=== PATIENT | female | born 1965 | race Caucasian/White ===

== ENCOUNTER 2016-10-22 19:17 | Emergency (ER) | payer SELFPAY ==
[~2016-10-22] VITALS: Ht 180.3 cm; Wt 80.0 kg
[2016-10-22 19:23] VITALS: BP 128/87; PULSE 101; RESP 20; TEMP 98.1; O2SAT 92
[2016-10-22] MEDS ORDERED: SODIUM CHLOR 0.9% 1000 ML INJ 1,000 ML IV ONE (19:45)
[2016-10-22] MEDS ORDERED: TETANUS/DIPHTHERIA TOXOID ADULT 0.5 ML VIAL IM ONE (19:45)
[2016-10-22] MEDS ORDERED: LIDOCAINE HCL 1% PF 30 ML VIAL INFIL ONE (19:45)
--- NOTE | 2016-10-22 19:45 | PD ---
HPI Chief Complaint: Head Injury Time Seen by Provider: 19:35 Travel History International Travel<30 days: No Contact w/Intl Traveler<30days: No Traveled to known affect area: No History of Present Illness HPI 51-year-old female presents to the emergency department by private transportation the care of her friend for evaluation of head injury. Reportedly around 4:30 this afternoon patient had a non-syncopal slip and fall at the pool slide sustaining a head injury with a laceration to the right frontal scalp. Event was witnessed and there was no loss of consciousness and no reported seizure activity. Patient here denies any pain. Patient has been ambulatory since. Patient has had no altered mentation vomiting or loss of consciousness. Patient admits to drinking heavily and she broke up with her boyfriend. Patient intermittently tearful and upset because of her relationship situation. Patient denies any upper extremity or lower extremity numbness tingling or weakness. Patient's had no chest pain rib pain shortness of breath abdominal pain back pain or upper or lower extremity numbness tingling or weakness. There is been no ataxia of gait. Patient does not know her tetanus status. 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 Patient rates pain as 0/10 in intensity. Friend who witnessed event is at the bedside. [facility] Past Medical History Narrative Medical Right ear deafness; no surgery; alcohol use: Nursing notes reviewed Social History Tobacco Use: No Allergies-Medications (Allergen,Severity, Reaction): Coded Allergies: No Known Allergies (Unverified , 10/22/16) Reported Meds & Prescriptions Reported Meds & Active Scripts Active Zofran Odt (Ondansetron Odt) 4 Mg Tab 4 Mg SL Q6HR PRN Narrative Medication none per patient Review of Systems Except as stated in HPI: all other systems reviewed are Neg General / Constitutional: No: Fever Eyes: No: Visual changes HENT: No: Headaches, Neck Pain Cardiovascular: No: Chest Pain or Discomfort Respiratory: No: Shortness of Breath Gastrointestinal: No: Vomiting, Abdominal Pain Genitourinary: No: Flank Pain Musculoskeletal: No: Pain Skin: Positive Other (laceration right frontal scalp) Neurologic: No: Weakness, Dizziness, Syncope, Focal Abnormalities, Coordination Problem Psychiatric: Positive: Other (alcohol use), No: Anxiety Hematologic/Lymphatic: No: Lymph Node Enlargement Physical Exam Narrative GENERAL: Well-developed well-nourished female in no acute distress no respiratory distress with bandage to the head; GCS 15; intermittently tearful SKIN: Warm and dry. HEAD: Atraumatic. Normocephalic. Right frontal scalp and hairline 3.5 cm laceration without bony step off. No soft tissue swelling. EYES: Pupils equal and round. No scleral icterus. No injection or drainage. No periorbital rim tenderness or bony abnormality. ENT: No nasal bleeding or discharge. Mucous membranes pink and moist. Airway is patent. Bilateral tympanic membranes no redness no dullness no hemotympanum. NECK: Trachea midline. No JVD. No midline tenderness or bony step-off to direct palpation. CARDIOVASCULAR: Regular rate and rhythm. RESPIRATORY: No accessory muscle use. Clear to auscultation. Breath sounds equal bilaterally. GASTROINTESTINAL: Abdomen soft, non-tender, nondistended. Hepatic and splenic margins not palpable. MUSCULOSKELETAL: Extremities without clubbing, cyanosis, or edema. No obvious deformities. NEUROLOGICAL: Awake and alert. GCS 15. No obvious cranial nerve deficits. Motor grossly within normal limits. Five out of 5 muscle strength in the arms and legs. Normal speech. PSYCHIATRIC: Intermittently mood and affect. Data Data Last Documented VS Vital Signs Date Time Temp Pulse Resp B/P Pulse Ox O2 Delivery O2 Flow Rate FiO2 10/22/16 21:14 76 20 128/72 98 10/22/16 19:[address] Brain W/O Iv Contrast(Rout) (10/22/16 ) Ct Cerv Spine W/O Contrast (10/22/16 ) ^ Saline Lock (10/22/16 19:36) Alcohol (Ethanol) (10/22/16 19:36) Lidocaine Pf 1% Inj (Xylocaine-Mpf 1% In (10/22/16 19:45) Tetanus/Diphtheria Tox Adult (Tetanus/Di (10/22/16 19:45) Sodium Chlor 0.9% 1000 Ml Inj (Ns 1000 M (10/22/16 19:45) Ice/Cold Pack (10/22/16 19:36) Labs Laboratory Tests Test 10/22/16 20:05 Ethyl Alcohol Level 261 MG/DL [facility] Medical Decision Making Medical Screen Exam Complete: Yes Emergency Medical Condition: Yes Medical Record Reviewed: Yes Interpretation(s) alcohol: 261, elevated Last Impressions Head CT 10/22/16 0000 Signed Impressions: Service Date/Time: Saturday, October 22, 2016 19:44 - CONCLUSION: Right frontal scalp laceration. No fracture or acute intracranial abnormality is identified. Jose Malik MD Cervical Spine CT 10/22/16 0000 Signed Impressions: Service Date/Time: Saturday, October 22, 2016 19:44 - CONCLUSION: No acute cervical spine abnormality is identified. Jose Malik MD Vital Signs Date Time Temp Pulse Resp B/P Pulse Ox O2 Delivery O2 Flow Rate FiO2 10/22/16 20:06 102 20 144/82 100 10/22/16 19:57 20 10/22/16 19:23 98.1 101 20 128/87 92 Differential Diagnosis Closed head injury, ICH, contusion, skull fracture, scalp laceration, alcohol intoxication, cervical spine sprain strain fracture Narrative Course Patient presents one hour to 3 hours after event as patient and friend cannot agree on time of the injury: No loss of consciousness; dressing applied to laceration imaging studies ordered IV access obtained tetanus status updated. Imaging study consistent with no acute trauma related injury except identified to have scalp laceration. Serum alcohol of elevated at 261, patient has received IV fluid hydration and monitored in the emergency department; adult can operator at bedside willing to accept responsibility for patient in transport patient to home safely. Patient and can operator aware patient will require close head injury monitoring 24 hours and will be provided with closed head injury instructions. Laceration repaired by physician rn renal. Diagnosis Primary Impression: Closed head injury Qualified Code: S09.90XA - Closed head injury, initial encounter Additional Impressions: Scalp laceration Qualified Code: S01.01XA - Scalp laceration, initial encounter Alcohol ingestion Referrals: Primary Care Physician 2 days Patient Instructions: General Instructions Additional Instructions: Follow head injury precautions 24 hours Increase fluid hydration Do not drink alcoholic beverages Takes Zofran as prescribed as needed for nausea and/or vomiting Monitor temperature for fever take acetaminophen/Tylenol as needed for minor pain or for fever 100.4F or greater Avoid ibuprofen 24 hours and may use as needed per package instructions for pain associated with inflammation or for fever 100.4 days Fahrenheit or greater Wound check is performed at 2 days and suture removal at 5-7 days; keep one site clean and dry May apply ice pack intermittently to areas of soft tissue swelling. Med/Other Pt SpecificInfo: Prescription(s) given Scripts Ondansetron Odt (Zofran Odt)4 Mg Tab4 Mg SL Q6HR PRN (Nausea/Vomiting) #10 TAB Ref 0 Prov:Gale Gao MD 10/22/16 Disposition: 01 DISCHARGE HOME Condition: Stable Gale Gao MD Oct 22, 2016 19:45 Gale Gao MD Oct 22, 2016 19:45
[2016-10-22 20:06] VITALS: BP 144/82; PULSE 102; RESP 20; O2SAT 100
--- NOTE | 2016-10-22 20:27 | RADHPO ---
EXAM DATE/TIME: 10/22/2016 19:44 [facility] COMPARISON: No previous studies available for comparison. INDICATIONS : Trauma. Fall. Right temporal laceration. RADIATION DOSE: 66.33 CTDIvol (mGy) MEDICAL HISTORY : None SURGICAL HISTORY : None. ENCOUNTER: Initial ACUITY: 1 day PAIN SCALE: 2/10 LOCATION: Right temporal TECHNIQUE: Multiple contiguous axial images were obtained of the head. Using automated exposure control and adj ustment of the mA and/or kV according to patient size, radiation dose was kept as low as reasonably a chievable to obtain optimal diagnostic quality images. FINDINGS: CEREBRUM: The ventricles are normal. No evidence of midline shift, mass lesion, hemorrhage or acute infarction . No extra-axial fluid collections are seen. POSTERIOR FOSSA: The cerebellum and brainstem are intact. The 4th ventricle is midline. The cerebellopontine angle i s unremarkable. EXTRACRANIAL: There is a right frontal scalp laceration. SKULL: The calvaria is intact. No evidence of skull fracture. CONCLUSION: Right frontal scalp laceration. No fracture or acute intracranial abnormality is identified. Jose Malik MD on October 22, 2016 at 20:23 Board Certified Radiologist. This report was verified electronically.
--- NOTE | 2016-10-22 20:29 | RADHPO ---
EXAM DATE/TIME: 10/22/2016 19:44 [facility] COMPARISON: No previous studies available for comparison. INDICATIONS : Trauma. Fall. Neck pain. RADIATION DOSE: 26.70 CTDIvol (mGy) MEDICAL HISTORY : None SURGICAL HISTORY : None. ENCOUNTER: Initial ACUITY: 1 day PAIN SCALE: 2/10 LOCATION: neck TECHNIQUE: Volumetric scanning of the cervical spine was performed. Multiplanar reconstructions in the sagittal, coronal and oblique axial planes were performed. Using automated exposure control and adjustment o f the mA and/or kV according to patient size, radiation dose was kept as low as reasonably achievable to obtain optimal diagnostic quality images. FINDINGS: There is normal sagittal spine alignment of the cervical spine. No anterolisthesis or retrolisthesis is present. The atlantoaxial relationship is within normal limits. There is no prevertebral soft tiss ue swelling present. No fracture or dislocation is identified. There is degenerative disc disease at C6-C7. The visualized portions of the posterior fossa, paraspinous soft tissues, and upper lung zones demons trate no acute abnormality. CONCLUSION: No acute cervical spine abnormality is identified. Jose Malik MD on October 22, 2016 at 20:25 Board Certified Radiologist. This report was verified electronically.
[2016-10-22] MEDS ORDERED: ZOFR4TAB3 SL (20:51)
--- NOTE | 2016-10-22 20:52 | PD ---
Physical Exam Time Seen by Provider: 20:35 Narrative For full H&P for Dr. Orosco note. I performed laceration repair to the right scalp. LACERATION LOCATION: Scalp right-sided LENGTH: 3 cm NUMBER OF STITCHES/FLORA: 5 REPAIR: The area of the laceration was prepped with Betadine and sterilely draped. The laceration was infiltrated with 1% lidocaine with epi. The wound was copiously irrigated and explored without evidence of foreign body, tendon injury or neurovascular injury. The wound was closed using 4-0 Prolene. This was a in a single layer repair. A sterile dressing was applied. The patient was advised to keep the dressing clean and dry. Patient tolerated the procedure well. Data Data Last Documented VS Vital Signs Date Time Temp Pulse Resp B/P Pulse Ox O2 Delivery O2 Flow Rate FiO2 10/22/16 20:06 102 20 144/82 100 10/22/16 19:[address] Brain W/O Iv Contrast(Rout) (10/22/16 ) Ct Cerv Spine W/O Contrast (10/22/16 ) ^ Saline Lock (10/22/16 19:36) Alcohol (Ethanol) (10/22/16 19:36) Lidocaine Pf 1% Inj (Xylocaine-Mpf 1% In (10/22/16 19:45) Tetanus/Diphtheria Tox Adult (Tetanus/Di (10/22/16 19:45) Sodium Chlor 0.9% 1000 Ml Inj (Ns 1000 M (10/22/16 19:45) Ice/Cold Pack (10/22/16 19:36) Labs Laboratory Tests Test 10/22/16 20:05 Ethyl Alcohol Level 261 MG/DL MDM Supervised Visit with KD: Yes Scripts No Active Prescriptions or Reported Meds Parisa Palma Oct 22, 2016 20:52
[2016-10-22 21:14] VITALS: BP 128/72
== END 2016-10-22 21:23 | disposition home or self-care (01) ==
LOC: PHED 19:17
DX: S01.01XA Laceration without foreign body of scalp, initial encounter (principal); W01.0XXA Fall on same level from slipping, tripping and stumbling without subsequent striking against object, initial encounter; Y92.34 Swimming pool (public) as the place of occurrence of the external cause; Z23 Encounter for immunization
CPT/HCPCS: 12002; 70450; 72125; 80307; 90471; 90714; 99285; J7030